=== PATIENT | female | born 1970 | race Asian ===

== ENCOUNTER → 2016-06-21 | Day surgery (SDC) | payer BC ==
[2016-06-08 08:47] VITALS: Ht 154.9 cm; Wt 52.7 kg
--- NOTE | 2016-06-20 14:17 | HISTORY & PHYSICAL EXAMINATION ---
DATE OF ADMISSION: 06/21/2016 The patient is scheduled for surgery 06/21/16. HISTORY OF PRESENT ILLNESS: The patient is a 46-year-old female 1, para 1 who experienced some irregular uterine bleeding. The patient underwent hysterosonogram on 05/03/2016, which showed 2 endometrial masses. The patient has a history of breast cancer and does take tamoxifen for this. The patient last had a Pap smear in November of 2015 and this showed endometrial cells. Otherwise, negative. PAST MEDICAL HISTORY: ALLERGIES: The patient has no known allergies. MEDICATIONS: Tamoxifen daily. PAST SURGICAL HISTORY: The patient has had a lumpectomy of the left breast. She has also undergone radiation therapy. ILLNESSES: History of breast cancer. FAMILY HISTORY: Her father has a history of cancer, also hypertension. Her mother, diabetes. SOCIAL HISTORY: The patient denies drinking alcohol or smoking cigarettes. PHYSICAL EXAMINATION: VITAL SIGNS: Height 5 feet 1 inch, weight 118 pounds, and blood pressure 104/72. HEENT: Grossly within normal limits. NECK: Supple without masses. CHEST: Her lungs are clear without wheezing. HEART: Regular rate and rhythm. No murmurs, gallops or rubs. ABDOMEN: Soft and nontender with no masses. PELVIC: External genitalia normal. Vagina pink and stimulated. Cervix pink and closed with no lesions visible. Uterus is within normal limits in size and nontender. Adnexa nontender with no masses palpable. Rectovaginal exam is negative. EXTREMITIES: No cyanosis, clubbing or edema. IMPRESSION: A 46-year-old female 1, para 1 with irregular uterine bleeding and 2 endometrial masses by hysterosonogram. The patient is taking tamoxifen for breast cancer treatment. PLAN: The patient is for hysteroscopy, dilation of the cervix and curettage with possible removal of polyp/lesion. The patient is aware of the risks of bleeding, infection, perforation of the uterus and possible need for further treatment or surgery. All questions were answered. The patient wishes to proceed with the surgery as planned. TOMY
[~2016-06-21] VITALS: Ht 154.9 cm; Wt 52.7 kg
[~2016-06-21] MED LIST: ATROPINE SULFATE 0.1 MG/ML 5ML SYR IV PRN; DEXAMETHASONE SOD INJ 4 MG/ML VIAL ONE; EpHEDrine SULFATE INJ 50 MG/ML AMP IV PRN; FENTANYL CITRATE INJ 50 MCG/1 ML 2 ML VIAL IV PRN; FENTANYL CITRATE INJ 50 MCG/1 ML 2 ML VIAL ONE; HYDROmorphone INJ 1 MG/ML SYR IV PRN; IBUPROFEN 200 MG TAB ONE; IBUPROFEN 600 MG TAB PO PRN; LACTATED RINGER'S 1000ML 1,000 ML IV SCH; LIDOCAINE HCL 2% 2 ML VIAL (20MG/ML) ONE; MIDAZOLAM HCL 1 MG/ML 2ML VIAL ONE; MISCCAP80 PO; MULT-506 PO; OMEG10007 PO; ONDANSETRON INJ 2 MG/ML 2 ML VIAL IV PRN; ONDANSETRON INJ 2 MG/ML 2 ML VIAL ONE; PROMETHAZINE HCL INJ 12.5 MG in SODIUM CHLORIDE 0.9% 50ML 50 ML IV PRN; PROPOFOL IV EMULSION 10 MG/ML 20 ML VIAL IV ONE; SODIUM CHLORIDE 0.9% 1000ML 1,000 ML IV SCH; TAMO20TA47 PO; VITAMIN C PO; [UNRECOGNIZED DRUG - OTHER] PO
--- NOTE | 2016-06-21 06:45 | History & Physical Bridge - SC ---
H&P Re-Evaluation Bridge Note: I have examined the patient, reviewed the History & Physical and in the interval since the performance of the History & Physical I have noted the following changes of clinical significance: No changes noted
--- NOTE | 2016-06-21 07:42 | [facility] Post Operative Brief Note ---
Immediate Operative Summary Operative Date Jun 21, 2016. Pre-Operative Diagnosis Abnormal Uterine Bleeding, Endometrial Mass Post-Operative Diagnosis Same with pathology pending Procedure(s) Performed Dilatation And Curettage, Hysteroscopy, Polypectomy Surgeon Dr. Andrade Lending Activities Supervisor Surgeon(s) None Estimated Blood Loss 10 mL Findings See dictated note. Specimens A. Endometrial Polyp B. Endometrial Curettings Complication(s) None Disposition Recovery Room / PACU
--- NOTE | 2016-06-21 07:55 | Discharge Instructions-SurgCtr ---
Discharge Instructions Date of Service Jun 21, 2016. Visit Reason for Visit: Abnormal Uterine Bleeding with Endometrial Polyps Discharge Discharge Diagnosis / Problem: S/P Hysteroscopy, D&C and removal of polyps Discharge Goals Goal(s): Diagnostic testing, Therapeutic intervention Activity Recommendations Activity Limitations: per Instructions/Follow-up section Anesthesia . Post Anesthesia Instructions: If you have had General Anesthesia or IV Sedation: * Do not drive today. * Resume driving when surgeon permits. * Do not make important decisions or sign legal documents today. * Call surgeon for: 1. Temperature elevations greater than 101 degrees F. 2. Uncontrollable pain. 3. Excessive bleeding. 4. Persistent nausea and vomiting. 5. Medication intolerance (nausea, vomiting or rash). * For nausea and vomiting use only clear liquids such as: tea, soda, bouillon until nausea subsides, then gradually increase diet as tolerated. * If you have any concerns or questions, call your surgeon's office. If physician is unavailable and it is an emergency, call 911 or go to the nearest emergency room. . Instructions / Follow-Up Instructions / Follow-Up ACTIVITY RECOMMENDATIONS: * Avoid tampons, douching, hot tubs, pools, and intercourse until bleeding has stopped. * May shower as usual. * No strenuous activity for 24-48 hours. After 24-48 hours, you may do anything you feel like doing (driving and sports are okay). SPECIAL CARE INSTRUCTIONS: Special Diet: * Mild nausea may occur in the immediate post-operative period. * Take clear liquids such as tea, cola or bouillon until all nausea has subsided; you may then resume your normal diet. Special Care: * Light bleeding and vaginal spotting can last from a few days to 3-4 weeks. Call your doctor if bleeding becomes heavier than the heaviest part of your period. * Check your temperature twice a day for one week. If it goes above 100.4 degrees Fahrenheit (38.0 Celsius), notify your doctor. Call if you have persistent severe cramping or you develop a foul smelling vaginal discharge. * Call your doctor's office for an appointment for 2-4 weeks after your surgery. Call [phone] Andrade. FOLLOW-UP VISIT: Call your doctor's office for an appointment for 2-4 weeks after your surgery. Diet Recommendations Home Diet: resume previous diet Procedures Procedures Performed: Dilatation And Curettage, Hysteroscopy, Polypectomy Pending Studies Studies pending at discharge: yes List of pending studies: We will call you with the pathology report on the tissue that was removed with the D&C. That report should be ready within one week. Medical Emergencies . Who to Call and When: Medical Emergencies: If at any time you feel your situation is an emergency, please call 911 immediately. . Non-Emergent Contact Non-Emergency issues call your: Building Trades Instructor Call Non-Emergent contact if: temperature is above 100.5, your pain is worsening, you have any medication questions . Past History Medical & Surgical History: (1) Stage I breast cancer . "Provider Documentation" section prepared by Marissa Andrade.
--- NOTE | 2016-06-21 08:32 | OPERATIVE REPORT ---
DATE OF OPERATION: 06/21/2016 PREOPERATIVE DIAGNOSIS: Abnormal uterine bleeding with endometrial masses. POSTOPERATIVE DIAGNOSIS: Same with pathology pending. PROCEDURE: Hysteroscopy, dilation and curettage and polypectomy. SURGEON: Dr. Marissa Andrade. ANESTHESIA: General. INFECTION CONTROL PRACTITIONER: Dr. Wilcox. DESCRIPTION OF PROCEDURE: The patient was taken to the operating room, where general anesthesia was administered. After an adequate level was obtained, she was placed in dorsal lithotomy position. Vulva, vagina, and cervix were prepped with Betadine solution. The patient was draped. Bladder was drained with a straight catheter. Cervix was dilated. The uterus sounded to 8 cm. Hysteroscope was then introduced into the endometrial cavity and there were 2 polypoid masses that could be seen. Photos were taken. There were no obviously worrisome lesions. Hysteroscope was removed. Polyp forceps were then introduced and a substantial piece of at least 1 endometrial polyp was obtained. No further tissue could be obtained, however. The endometrial cavity was then curetted with a serrated curette. Some additional tissue was obtained. Endometrial cavity was visualized once more and there remained another polyp. Hysteroscope was removed and MyoSure instrument inserted with hysteroscope. The MyoSure instrument was used to remove the remaining polypoid tissue. Specimens were sent either as polypoid tissue or endometrial curettings. Estimated blood loss for the entire procedure was no more than 10 mL. The patient tolerated the procedure well and was taken to the recovery room in good condition. I attest to the content of the Intraoperative Record and any orders documented therein. Any exceptions are noted below. TOMY
[2016-06-21 08:42] VITALS: TEMP 36.2
--- NOTE | 2016-06-21 08:44 | Anesthesiology Progress Note ---
Anesthesia Post Op Note Date & Time Jun 21, 2016 at 08:45 Vital Signs Pain Intensity: 2 Vital Signs Past 12 Hours Date Time Temp Pulse Resp B/P Pulse Ox O2 Delivery O2 Flow Rate FiO2 06/21/16 08:42 36.2 66 14 114/78 100 Room Air 06/21/16 08:27 36.4 64 17 06/21/16 08:27 65 17 100 06/21/16 08:25 118/75 06/21/16 08:22 61 14 06/21/16 08:22 61 14 98 06/21/16 08:20 119/76 06/21/16 08:17 63 15 06/21/16 08:17 64 15 99 06/21/16 08:15 125/77 06/21/16 08:12 59 17 06/21/16 08:12 59 17 99 06/21/16 08:10 123/68 06/21/16 08:07 71 19 06/21/16 08:07 70 19 100 06/21/16 08:05 126/68 06/21/16 08:02 66 24 06/21/16 08:02 67 24 100 06/21/16 08:00 120/64 06/21/16 07:57 72 17 100 06/21/16 07:57 73 17 06/21/16 07:55 119/63 06/21/16 07:52 62 25 100 06/21/16 07:52 63 25 06/21/16 07:50 114/61 06/21/16 07:47 65 16 121/67 100 06/21/16 07:47 36.0 68 16 121/67 100 Diffusion Mask 8 06/21/16 07:47 64 16 06/21/16 06:35 36.4 86 16 121/83 96 Room Air Notes Mental Status: alert / awake / arousable, participated in evaluation Pt Amnestic to Procedure: Yes Nausea / Vomiting: adequately controlled Pain: adequately controlled Airway Patency, RR, SpO2: stable & adequate BP & HR: stable & adequate Hydration State: stable & adequate Anesthetic Complications: no major complications apparent
[2016-06-21 09:00] VITALS: BP 111/76; PULSE 62; O2SAT 99
== END | disposition home or self-care (01) ==
LOC: X.SURG 06:14
PROVIDERS: ATTEND Obstetrics & Gynecology
DX: N93.9 Abnormal uterine and vaginal bleeding, unspecified (principal); N84.0 Polyp of corpus uteri; N94.89 Other specified conditions associated with female genital organs and menstrual cycle; Z68.22 Body mass index [BMI] 22.0-22.9, adult; Z98.890 Other specified postprocedural states; Z90.89 Acquired absence of other organs; Z85.3 Personal history of malignant neoplasm of breast; Z83.3 Family history of diabetes mellitus; Z80.9 Family history of malignant neoplasm, unspecified; Z82.49 Family history of ischemic heart disease and other diseases of the circulatory system

== ENCOUNTER → 2016-07-26 | Outpatient (CLI) | payer BC ==
[~2016-07-26] MED LIST changes: -ATROPINE SULFATE 0.1 MG/ML 5ML SYR IV PRN; -DEXAMETHASONE SOD INJ 4 MG/ML VIAL ONE; -EpHEDrine SULFATE INJ 50 MG/ML AMP IV PRN; -FENTANYL CITRATE INJ 50 MCG/1 ML 2 ML VIAL IV PRN; -FENTANYL CITRATE INJ 50 MCG/1 ML 2 ML VIAL ONE; +GADAVIST IV PRN; -HYDROmorphone INJ 1 MG/ML SYR IV PRN; -IBUPROFEN 200 MG TAB ONE; -IBUPROFEN 600 MG TAB PO PRN; -LACTATED RINGER'S 1000ML 1,000 ML IV SCH; -LIDOCAINE HCL 2% 2 ML VIAL (20MG/ML) ONE; -MIDAZOLAM HCL 1 MG/ML 2ML VIAL ONE; -ONDANSETRON INJ 2 MG/ML 2 ML VIAL IV PRN; -ONDANSETRON INJ 2 MG/ML 2 ML VIAL ONE; -PROMETHAZINE HCL INJ 12.5 MG in SODIUM CHLORIDE 0.9% 50ML 50 ML IV PRN; -PROPOFOL IV EMULSION 10 MG/ML 20 ML VIAL IV ONE; -SODIUM CHLORIDE 0.9% 1000ML 1,000 ML IV SCH; -TAMO20TA47 PO; +TAMO20TA9 PO
--- NOTE | 2016-07-26 13:44 | DIAGNOSTIC IMAGING REPORT ---
MRI ABDOMEN COMBO CLINICAL HISTORY: IPMN BREAST CARCINOMA. TECHNIQUE: Imaging was performed prior to and following IV contrast injection (5.5 cc intravenous Gadavist. COMPARISON STUDY: Outside CT scan from [place] dated 11/12/2015 FINDINGS: Imaging was performed in the axial and coronal planes. There is a 4 mm cyst within the right hepatic lobe superiorly. There is a 5 mm cyst within the right hepatic lobe inferiorly. Subcentimeter tangential cysts are also present within the left hepatic lobe. The gallbladder appears normal. No splenic masses are visualized. No adrenal masses are visualized. No renal masses are visualized. There is no evidence of abdominal aortic dilatation. No pancreatic masses are visualized. The study fails to confirm the previously queried 5 mm pancreatic head cystic lesion. IMPRESSION: 1. Subcentimeter hepatic cysts 2. No pancreatic masses identified. Electronically signed by: Oleg Vieyra M.D. 07/26/2016 1:43 PM Dictated Date/Time: 07/26/2016 1:36 PM
== END | disposition home or self-care (01) ==
LOC: C.MRI 12:25
PROVIDERS: ATTEND Internal Medicine Hematology & Oncology
DX: D05.10 Intraductal carcinoma in situ of unspecified breast (principal); K76.89 Other specified diseases of liver

== ENCOUNTER → 2017-10-26 | Outpatient (CLI) | payer OTHER ==
[~2017-10-26] MED LIST changes: -GADAVIST IV PRN
--- NOTE | 2017-10-27 14:56 | MAMMOGRAPHY REPORT ---
BILATERAL DIGITAL SCREENING MAMMOGRAM TOMOSYNTHESIS WITH CAD: 10/26/2017 CLINICAL HISTORY: Asymptomatic. Personal history of breast cancer. TECHNIQUE: The study was acquired using full field digital technology and interpreted from soft copy. Breast tomosynthesis in addition to standard 2D mammography was performed. Current study was also ev aluated with a Computer Aided Detection (CAD) system. COMPARISON: Comparison is made to exams dated: 06/25/2013 mammogram, 05/05/2012 mammogram, 01/20/2011 m ammogram, 07/17/2009 mammogram, 10/09/2009 mammogram - [facility] [place], and 11/12/2015 mamm ogram. BREAST COMPOSITION: The tissue of both breasts is heterogeneously dense, which may obscure small mass es. FINDINGS: A linear scar marker overlies the left upper outer breast. There is expected architectural distortion and numerous surgical clips throughout the anterior left breast, and the area of prior jason rgeries. There are stable benign rim calcifications in the right breast. No new suspicious masses, asymmetries, suspicious clustered calcifications or unexpected architectural distortion is seen bilat erally. 2 surgical clips also project over the left superior pectoralis muscle on the MLO view, amari ting axillary lymph node sampling. Recommend bilateral screening mammography in 1 year. IMPRESSION: ACR BI-RADS CATEGORY 1: NEGATIVE Stable bilateral mammograms including postsurgical/posttreatment changes in the left breast, without mammographic evidence of malignancy. A 1 year screening mammogram is recommended.(10/27/2018) The pa tient will receive written notification of the results. Some breast cancers are not detected with mammography. A negative mammographic report should not mj y biopsy if a clinically suggestive mass is present. Kajal Garner M.D. ay/:10/26/2017 16:26:14 Manager Trust: RT Asim(Byron)(Kay), [facility] letter sent: Normal 1/2 BI-RADS Code: ACR BI-RADS Category 1: Negative
== END | disposition home or self-care (01) ==
LOC: C.MAMM 14:24
PROVIDERS: ATTEND Internal Medicine Hematology & Oncology
DX: Z12.31 Encounter for screening mammogram for malignant neoplasm of breast (principal); Z85.3 Personal history of malignant neoplasm of breast